=== PATIENT | male | born 1975 | race African-American/Black ===

== ENCOUNTER 2017-07-02 10:23 | Observation (INO) | payer SELFPAY ==
[~2017-07-02] VITALS: Ht 182.9 cm; Wt 85.0 kg
[2017-07-02 10:25] VITALS: BP 177/104; PULSE 64; RESP 14; TEMP 98.9; O2SAT 99
[2017-07-02 10:38] VITALS: BP 179/95; PULSE 58; RESP 16; O2SAT 100
--- NOTE | 2017-07-02 10:40 | PD ---
HPI Chief Complaint: Abdominal Pain Time Seen by Provider: 10:35 Travel History International Travel<30 days: No Contact w/Intl Traveler<30days: No Traveled to known affect area: No History of Present Illness HPI 41-year-old male here for evaluation of right upper quadrant abdominal pain. The patient reports that the pain started yesterday morning and has been constant since then. Pain was a lot worse when it initially started, currently 5 out of 10, described as a pressure. He notices that he has increased pain/ pressure after eating. He states that about a week ago he had a tooth infection and was taking ibuprofen. He drinks about 3 beers daily. No chest pain or dyspnea. No fevers or chills. No nausea or vomiting. No history of abdominal surgeries. No urinary symptoms. PFSH Past Medical History Medical History: Denies Significant Hx Influenza Vaccination: No Past Surgical History Surgical History: No Previous Surgery Social History Alcohol Use: Yes (DAILY BEER (4-6 PER DAY)) Tobacco Use: No (CIGARS (1-2 PER DAY)) Allergies-Medications (Allergen,Severity, Reaction): Coded Allergies: No Known Allergies (Verified Allergy, Unknown, 07/02/17) Reported Meds & Prescriptions Reported Meds & Active Scripts Active No Active Prescriptions or Reported Medications Review of Systems Except as stated in HPI: all other systems reviewed are Neg Physical Exam Narrative GENERAL: Well-developed, well-nourished, comfortable, no apparent distress. SKIN: Focused skin assessment warm/dry. No rash. HEAD: Atraumatic. Normocephalic. EYES: Pupils equal and round. No scleral icterus. No injection or drainage. ENT: Mucous membranes pink and moist. NECK: Trachea midline. No JVD. CARDIOVASCULAR: Regular rate and rhythm. RESPIRATORY: No accessory muscle use. Clear to auscultation. Breath sounds equal bilaterally. GASTROINTESTINAL: Abdomen soft, nondistended. Moderate right upper quadrant tenderness with Vicente sign. No peritoneal signs. Rest of abdomen is soft and nontender. No hernias. Normal bowel sounds. MUSCULOSKELETAL: No obvious deformities. No clubbing. No cyanosis. No edema. NEUROLOGICAL: Awake and alert. No obvious cranial nerve deficits. Motor grossly within normal limits. Normal speech. PSYCHIATRIC: Appropriate mood and affect; insight and judgment normal. Data Data Last Documented VS Vital Signs Date Time Temp Pulse Resp B/P (MAP) Pulse Ox O2 Delivery O2 Flow Rate FiO2 07/02/17 11:36 60 22 163/87 (112) 100 Room Air 07/02/17 10:25 98.9 Orders Orders Complete Blood Count With Diff (07/02/17 10:38) Comprehensive Metabolic Panel (07/02/17 10:38) Lipase (07/02/17 10:38) Prothrombin Time / Inr (Pt) (07/02/17 10:38) Act Partial Throm Time (Ptt) (07/02/17 10:38) Urinalysis - C+S If Indicated (07/02/17 10:38) Us Abdomen Gallbladder (07/02/17 ) Iv Access Insert/Monitor (07/02/17 10:38) Ecg Monitoring (07/02/17 10:38) Oximetry (07/02/17 10:38) Sodium Chloride 0.9% Flush (Ns Flush) (07/02/17 10:45) Electrocardiogram (07/02/17 10:38) Ckmb (Isoenzyme) Profile (07/02/17 10:38) Troponin I (07/02/17 10:38) CKMB (07/02/17 10:50) CKMB% (07/02/17 10:50) Consult Cardiology (07/02/17 ) (Hub Use Only)Inp Phy Cons/Ref (07/02/17 ) Labs Laboratory Tests Test 07/02/17 10:50 White Blood Count 11.5 TH/MM3 Red Blood Count 4.98 MIL/MM3 Hemoglobin 14.7 GM/DL Hematocrit 44.7 % Mean Corpuscular Volume 89.8 FL Mean Corpuscular Hemoglobin 29.4 PG Mean Corpuscular Hemoglobin Concent 32.8 % Red Cell Distribution Width 14.6 % Platelet Count 244 TH/MM3 Mean Platelet Volume 8.1 FL Neutrophils (%) (Auto) 76.5 % Lymphocytes (%) (Auto) 11.1 % Monocytes (%) (Auto) 10.6 % Eosinophils (%) (Auto) 1.4 % Basophils (%) (Auto) 0.4 % Neutrophils # (Auto) 8.8 TH/MM3 Lymphocytes # (Auto) 1.3 TH/MM3 Monocytes # (Auto) 1.2 TH/MM3 Eosinophils # (Auto) 0.2 TH/MM3 Basophils # (Auto) 0.0 TH/MM3 CBC Comment DIFF FINAL Differential Comment Prothrombin Time 10.6 SEC Prothromb Time International Ratio 1.0 RATIO Activated Partial Thromboplast Time 34.9 SEC Urine Color STRAW Urine Turbidity CLEAR Urine pH 6.0 Urine Specific [place] 1.002 Urine Protein NEG mg/dL Urine Glucose (UA) NEG mg/dL Urine Ketones NEG mg/dL Urine Occult Blood NEG Urine Nitrite NEG Urine Bilirubin NEG Urine Urobilinogen LESS THAN 2.0 MG/DL Urine Leukocyte Esterase NEG Urine WBC 1 /hpf Urine Mucus FEW /lpf Microscopic Urinalysis Comment CULT NOT INDICATED Blood Urea Nitrogen 12 MG/DL Creatinine 1.12 MG/DL Random Glucose 103 MG/DL Total Protein 8.3 GM/DL Albumin 4.1 GM/DL Calcium Level 8.9 MG/DL Alkaline Phosphatase 104 U/L Aspartate Amino Transf (AST/SGOT) 27 U/L Alanine Aminotransferase (ALT/SGPT) 30 U/L Total Bilirubin 0.7 MG/DL Sodium Level 136 MEQ/L Potassium Level 4.0 MEQ/L Chloride Level 103 MEQ/L Carbon Dioxide Level 28.6 MEQ/L Anion Gap 4 MEQ/L Estimat Glomerular Filtration Rate 88 ML/MIN Total Creatine Kinase 490 U/L Creatine Kinase MB 3.4 NG/ML Creatine Kinase MB % 0.7 % Troponin I 0.05 NG/ML Lipase 108 U/L MDM Medical Decision Making Medical Screen Exam Complete: Yes Emergency Medical Condition: Yes Interpretation(s) EKG: Sinus, rate 56, leftward axis, normal intervals, slight diffuse ST elevations, no reciprocal changes. This pattern is not consistent with STEMI and is more consistent with early repolarization. Differential Diagnosis Biliary colic, cholecystitis, pancreatitis, peptic ulcer disease, ACS Narrative Course Initial vital signs show heart rate 64, blood pressure 177/104, pulse ox 99% on room air, oral temp of 98.9F. CBC shows WBC 11.5, hemoglobin 14.7, hematocrit 44.7, platelets 244, neutrophils 76.5%. CMP is unremarkable. Total CK is 490. CK-MB percent is 0.7%. Troponin is 0.05. UA is not suggestive of UTI, no hematuria, within normal limits. Right upper quadrant ultrasound: CONCLUSION: 1. Diffusely increased hepatic echogenicity without volume loss consistent with hepatic steatosis or early cirrhosis. 2. Minimal gallbladder sludge with gallbladder wall thickening and subtle pericholecystic fluid. These findings may be seen in the setting of chronic liver disease although differential considerations include developing early acute cholecystitis. Consider HIDA scan if there is continued clinical uncertainty to evaluate for cystic duct patency. EKG: Sinus, rate 56, leftward axis, normal intervals, slight diffuse ST elevations, no reciprocal changes. This pattern is not consistent with STEMI and is more consistent with early repolarization. He has no cardiac history. No chest pain. Case discussed with information assurance engineer kindergartners helper Dr Berger who evaluated the patient at the bedside and recommends repeat troponin 2 hours after the first. He agrees that his EKG is not a STEMI. Case discussed with on-call general surgeon Dr. Martínez who recommends admitting the patient to the medical service for further cardiac evaluation as well as HIDA scan. He will see the patient in consultation. Case discussed with hospitalist Dr. Evans who will admit the patient to his service. Diagnosis Primary Impression: Right upper quadrant abdominal pain Additional Impressions: Cirrhosis Qualified Codes: K70.30 - Alcoholic cirrhosis of liver without ascites Abnormal EKG Scripts No Active Prescriptions or Reported Meds Zachery Sifuentes MD Jul 02, 2017 10:40
[2017-07-02] MEDS ORDERED: SODIUM CHLORIDE 0.9% FLUSH 10 ML FLUSH IV FLUSH PRN ×2 (10:45→14:15)
[2017-07-02 11:01] LABS: AUTOMATED NEUTROPHIL # 8.8 TH/MM3 (1.8-7.7); BASOPHIL % 0.4 % (0.0-2.0); EOSINOPHIL # 0.2 TH/MM3 (0-0.4); EOSINOPHIL % 1.4 % (0.0-4.0); HEMATOCRIT 44.7 % (39.0-51.0); HEMO FLAGS DIFF FINAL; LYMPH % 11.1 % (9.0-44.0); LYMPHOCYTE # 1.3 TH/MM3 (1.0-4.8); MEAN CELL VOLUME 89.8 FL (80.0-100.0); MEAN CORPUSCULAR HEMOGLOBIN 29.4 PG (27.0-34.0); MEAN CORPUSCULAR HGB CONC 32.8 % (32.0-36.0); MONO % 10.6 % (0.0-8.0); NEUT % 76.5 % (16.0-70.0); PLATELET COUNT 244 TH/MM3 (150-450); RED BLOOD COUNT 4.98 MIL/MM3 (4.50-5.90); RED CELL DISTRIBUTION WIDTH 14.6 % (11.6-17.2); WHITE BLOOD COUNT 11.5 TH/MM3 (4.0-11.0)
[2017-07-02 11:10] LABS: APTT (PATIENT) 34.9 SEC (24.3-30.1); BLOOD, URINE NEG (NEG); GLUCOSE,URINE NEG (NEG); KETONE, URINE NEG (NEG); MUCUS URINE FEW /lpf (OCC); NITRITE,URINE NEG (NEG); PROTHROMBIN TIME - PATIENT 10.6 SEC (9.8-11.6)
[2017-07-02 11:12] LABS: URINE COLOR STRAW (YELLW/STRAW)
[2017-07-02 11:13] LABS: COMMENT (UR) CULT NOT INDICATED; COMMENT2 (UR) CULT NOT INDICATED; CULTURE IF INDICATED CULT NOT INDICATED
[2017-07-02 11:15] LABS: ALT (GPT) 30 U/L (12-78); ANION GAP 4 MEQ/L (5-15); AST (GOT) 27 U/L (15-37); BICARBONATE 28.6 MEQ/L (21.0-32.0); BLOOD UREA NITROGEN 12 MG/DL (7-18); CHLORIDE 103 MEQ/L (98-107); GLOMERULAR FILTRATION RATE 88 ML/MIN (>89); SODIUM (NA) 136 MEQ/L (136-145)
[2017-07-02 11:19] LABS: ALKALINE PHOSPHATASE 104 U/L (45-117); CREATINE KINASE 490 U/L (39-308); TOTAL BILIRUBIN ADULT 0.7 MG/DL (0.2-1.0)
[2017-07-02 11:31] LABS: CKMB 3.4 NG/ML (0.5-3.6)
--- NOTE | 2017-07-02 11:35 | EKG ---
Date Performed: 07/02/2017 Time Performed: 10:51:17 PTAGE: 41 years EKG: SINUS BRADYCARDIA LEFT AXIS DEVIATION NONSPECIFIC INTRAVENTRICULAR CONDUCTION DELAY NONSPEC IFIC ST & T-WAVE ABNORMALITY ABNORMAL ECG NO PREVIOUS TRACING DOCTOR: Jonas Robles Interpretating Date/Time 07/02/2017 11:34:10
[2017-07-02 11:36] VITALS: BP 163/87; PULSE 60; RESP 22; O2SAT 100
--- NOTE | 2017-07-02 12:20 | RADRPT ---
EXAM DATE/TIME: 07/02/2017 11:28 [facility] COMPARISON: No previous studies available for comparison. INDICATIONS : Right upper quadrant pain. MEDICAL HISTORY : Alcohol use. Tobacco use. SURGICAL HISTORY : None. ENCOUNTER: Initial ACUITY: 1 day PAIN SCORE: 3/10 LOCATION: Right upper quadrant MEASUREMENTS: LIVER: 16.3 cm length COMMON DUCT: 4 mm RIGHT KIDNEY: 11.2 x 4.4 x 6.4 cm FINDINGS: LIVER: Mild diffusely increased hepatic echogenicity without evidence for volume loss or focal mass. No sign ificant intrahepatic ductal dilatation. COMMON DUCT: No intraluminal mass or stone visualized. GALLBLADDER: Small amount of sludge in the gallbladder neck with mild gallbladder distention. The lateral wall is thickened measuring up to 8 mm with trace pericholecystic fluid. No definitive sonographic Vicente sig n. PANCREAS: The visualized portions are within normal limits. RIGHT KIDNEY: No evidence of hydronephrosis, stone, or mass. CONCLUSION: 1. Diffusely increased hepatic echogenicity without volume loss consistent with hepatic steatosis or early cirrhosis. 2. Minimal gallbladder sludge with gallbladder wall thickening and subtle pericholecystic fluid. Thes e findings may be seen in the setting of chronic liver disease although differential considerations i nclude developing early acute cholecystitis. Consider HIDA scan if there is continued clinical uncert ainty to evaluate for cystic duct patency. Hans Fofana MD on July 02, 2017 at 12:15 Board Certified Radiologist. This report was verified electronically.
[2017-07-02] MEDS ORDERED: BISACODYL 10 MG SUPP RECTAL PRN (14:15)
[2017-07-02] MEDS ORDERED: SENNOSIDES 8.6 MG TAB PO PRN (14:15)
[2017-07-02] MEDS ORDERED: ACETAMINOPHEN 325 MG TAB PO PRN (14:15)
[2017-07-02] MEDS ORDERED: MAGNESIUM HYDROXIDE SUSP 30 ML CUP PO PRN (14:15)
[2017-07-02] MEDS ORDERED: ONDANSETRON HCL 4 MG/2 ML VIAL IVP PRN (14:15)
[2017-07-02] MEDS ORDERED: NALOXONE HCL 0.4 MG/ML AMP IV PUSH PRN (14:15)
[2017-07-02] MEDS ORDERED: LACTULOSE SYRUP 20 GM/30 ML CUP PO PRN (14:15)
--- NOTE | 2017-07-02 15:03 | MB ---
cc: IZABELA LESTER MD DATE OF CONSULTATION: 07/02/2017. REASON FOR CONSULTATION: Abnormal EKG and indeterminate troponin. HISTORY OF PRESENT ILLNESS: The patient is a pleasant 41-year-old gentleman with no prior cardiac history who presents with a day or so of right upper quadrant pain, tender on palpation and his initial workup in the emergency department was notable for an abnormal EKG of which there was no prior for comparison as well as indeterminate level troponin. He denies any cardiac symptoms whatsoever such as chest pain, shortness of breath, lightheadedness, dizziness, or syncope. He denies any drug use but does admit to four to six alcoholic beverages a day as well as occasional cigars. PAST MEDICAL HISTORY: As above. HOME MEDICATIONS: Home medications include: 1. Blood pressure medication from which he does not take consistently. ALLERGIES: NO KNOWN DRUG ALLERGIES. PHYSICAL EXAMINATION: VITAL SIGNS: Afebrile, pulse 60, respiratory rate 22, blood pressure 163/87 down from 175/95, satting 100% on room air. GENERAL: In general, a pleasant -[place] gentleman in no distress. NECK: No jugular venous distention. LUNGS: Clear to auscultation bilaterally. CARDIOVASCULAR: Regular rate and rhythm. No murmurs appreciated. ABDOMEN: Benign. EXTREMITIES: No edema. LABORATORY DATA: White count 11.5, hematocrit 44.7, platelets 244,000. Sodium 136, potassium 4.0, chloride 103, bicarbonate 20.6, BUN 12, creatinine 1.12. Troponin is 0.05. Total CK is 490. CK-MB and CK-MB percent is normal. EKGS: EKG showed sinus rhythm with left ventricular hypertrophy type changes and some J point elevation consistent with early repolarization but no significant ischemic changes. IMPRESSION: Abnormal EKG: The patient does not have any symptoms or clinical indication of an acute cardiac process. His troponin is still in the normal range, though on the higher end possibly due to his significant hypertension. I do not believe there is any active cardiac problem going on as his clinical picture is much more consistent with a GI / gallbladder presentation. I will be available on an as-needed basis. Please call with any further questions. Thank you again for the opportunity to participate in this patient's care. MD TIMOTHY Bautista/ROMEO /12:11 PM /2:39 PM
[2017-07-02] MEDS ORDERED: IOHEXOL 350 MG/ML 10 ML VIAL (for RAD DIAG) IVCONTRAST ONE (15:09)
[2017-07-02] MEDS: HEPARIN SODIUM - SQ 10,000 UNITS/ML VIAL SQ SCH ×2 (15:15→23:18)
[2017-07-02] MEDS: SODIUM CHLOR 0.9% 1000 ML INJ 1,000 ML IV SCH (15:15)
--- NOTE | 2017-07-02 15:44 | HHI.HP ---
[facility] No Primary Care Physician Admission Diagnosis RUQ abdominal pain, cirrhosis, abnormal EKG Diagnoses: Chief Complaint: RUQ abdominal pain Travel History International Travel<30 Days: No Contact w/Intl Traveler <30 Da: No Traveled to Known Affected Are: No History of Present Illness Written by Ada Bustillos, acting as scribe for Dr. Evans on 07/02/17 at 15: 42. 41-year-old male with history of hypertension noncompliant with antihypertensives, alcohol use, presents with a 2 day history of right upper quadrant abdominal pain. The patient states yesterday morning 07/01 around 4am he woke up, tried to sit up, and noticed abdominal pain located at the right upper quadrant, no radiation, described as a constant mild pain. Denies any fevers/chills, nausea/vomiting, or diarrhea. He drank some cold water which does help alleviate the pain. Denies anything making the pain worse. He's never had this pain before. Denies any recent weight loss. Denies any chest pain or shortness of breath. The night before his symptoms started, he ate a meat lovers pizza from [employer] which is unusual for him. He states he normally eats fairly healthy. He also had a toothache 1 week ago, bought a bottle of Aleve, but only took 5 tablets total. He also does take a baby aspirin daily because his grandmother told him it was good for him. The patient has no other medical complaints at this time. Review of Systems Except as stated in HPI: all other systems reviewed are Neg Past Family Social History Past Medical History Hypertension, noncompliant with antihypertensives Past Surgical History Denies any prior surgeries. Reported Medications Aspirin 81mg daily Denies taking any other medications on a regular basis, however supposed to be on lisinopril 10mg and HCTZ 25mg daily for hypertension Allergies: Coded Allergies: No Known Allergies (Verified Allergy, Unknown, 07/02/17) Active Ordered Medications Current Medications Medications (Trade) Dose Ordered Sig/Zion Route Start Time Stop Time Status Last Admin Sodium Chloride 1,000 ml @ 100 mls/hr Q10H IV 07/02/17 14:03 07/02/17 15:15 (NS Flush) 2 ml UNSCH PRN IV FLUSH 07/02/17 14:15 (NS Flush) 2 ml BID IV FLUSH 07/02/17 21:00 (Tylenol) 650 mg Q4H PRN PO 07/02/17 14:15 (Zofran Inj) 4 mg Q6H PRN IVP 07/02/17 14:15 (Heparin Inj) 5,000 units Q8H SQ 07/02/17 15:00 07/02/17 15:15 (Narcan Inj) 0.4 mg UNSCH PRN IV PUSH 07/02/17 14:15 (Justyna-Colace) 1 tab BID PO 07/02/17 21:00 (Milk Of Magnesia Liq) 30 ml Q12H PRN PO 07/02/17 14:15 (Senokot) 17.2 mg Q12H PRN PO 07/02/17 14:15 (Dulcolax Supp) 10 mg DAILY PRN RECTAL 07/02/17 14:15 (Lactulose Liq) 30 ml DAILY PRN PO 07/02/17 14:15 (Toradol Inj) 15 mg Q6H PRN IV PUSH 07/02/17 14:15 07/07/17 14:14 Family History Mother with diabetes Social History Smokes 1 cigar (Black & Mild) daily over the past couple months Denies any cigarette use Drinks alcohol, 3 cans of beer daily recently over the past couple months, denies any problem with alcohol withdrawal Denies any other illicit drug use Physical Exam Vital Signs Vital Signs Date Time Temp Pulse Resp B/P (MAP) Pulse Ox O2 Delivery O2 Flow Rate FiO2 07/02/17 11:36 60 22 163/87 (112) 100 Room Air 07/02/17 10:38 58 16 179/95 (123) 100 Room Air 07/02/17 10:25 98.9 64 14 177/104 (128) 99 Physical Exam GENERAL: Well-nourished, well-developed middle aged male patient in [facility]. SKIN: Warm and dry. No rash. HEAD: Normocephalic. Atraumatic. EYES: Pupils equal and round. No scleral icterus. No injection or drainage. ENT: No nasal bleeding or discharge. Mucous membranes pink and moist. NECK: Supple. Trachea midline. CARDIOVASCULAR: Regular rate and rhythm. S1, S2 noted. No murmur appreciated. RESPIRATORY: No accessory muscle use. Clear to auscultation. Breath sounds equal bilaterally. GASTROINTESTINAL: Abdomen soft, nondistended, RUQ TTP. Normoactive bowel sounds x4. MUSCULOSKELETAL: No obvious deformities. Extremities without clubbing, cyanosis , or edema. NEUROLOGICAL: Awake and alert. No obvious cranial nerve deficits. Motor grossly within normal limits. Normal speech. PSYCHIATRIC: Appropriate mood and affect; insight and judgment normal. Laboratory Laboratory Tests Test 07/02/17 10:50 White Blood Count 11.5 Red Blood Count 4.98 Hemoglobin 14.7 Hematocrit 44.7 Mean Corpuscular Volume 89.8 Mean Corpuscular Hemoglobin 29.4 Mean Corpuscular Hemoglobin Concent 32.8 Red Cell Distribution Width 14.6 Platelet Count 244 Mean Platelet Volume 8.1 Neutrophils (%) (Auto) 76.5 Lymphocytes (%) (Auto) 11.1 Monocytes (%) (Auto) 10.6 Eosinophils (%) (Auto) 1.4 Basophils (%) (Auto) 0.4 Neutrophils # (Auto) 8.8 Lymphocytes # (Auto) 1.3 Monocytes # (Auto) 1.2 Eosinophils # (Auto) 0.2 Basophils # (Auto) 0.0 CBC Comment DIFF FINAL Differential Comment Prothrombin Time 10.6 Prothromb Time International Ratio 1.0 Activated Partial Thromboplast Time 34.9 Urine Color STRAW Urine Turbidity CLEAR Urine pH 6.0 Urine Specific [place] 1.002 Urine Protein NEG Urine Glucose (UA) NEG Urine Ketones NEG Urine Occult Blood NEG Urine Nitrite NEG Urine Bilirubin NEG Urine Urobilinogen LESS THAN 2.0 Urine Leukocyte Esterase NEG Urine WBC 1 Urine Mucus FEW Microscopic Urinalysis Comment CULT NOT INDICATED Blood Urea Nitrogen 12 Creatinine 1.12 Random Glucose 103 Total Protein 8.3 Albumin 4.1 Calcium Level 8.9 Alkaline Phosphatase 104 Aspartate Amino Transf (AST/SGOT) 27 Alanine Aminotransferase (ALT/SGPT) 30 Total Bilirubin 0.7 Sodium Level 136 Potassium Level 4.0 Chloride Level 103 Carbon Dioxide Level 28.6 Anion Gap 4 Estimat Glomerular Filtration Rate 88 Total Creatine Kinase 490 Creatine Kinase MB 3.4 Creatine Kinase MB % 0.7 Troponin I 0.05 Lipase 108 Result Diagram: 07/02/17 1050 07/02/17 1050 Imaging Last Impressions Gall Bladder Ultrasound 07/02/17 0000 Signed Impressions: Service Date/Time: Sunday, July 02, 2017 11:28 - CONCLUSION: 1. Diffusely increased hepatic echogenicity without volume loss consistent with hepatic steatosis or early cirrhosis. 2. Minimal gallbladder sludge with gallbladder wall thickening and subtle pericholecystic fluid. These findings may be seen in the setting of chronic liver disease although differential considerations include developing early acute cholecystitis. Consider HIDA scan if there is continued clinical uncertainty to evaluate for cystic duct patency. MD Radha Perez VTE Risk Assessment Caprinlatoya VTE Risk Assessment: No/Low Risk (score <= 1) Caprini Risk Assessment Model Point Value = 1 Point Value = 2 Point Value = 3 Point Value = 5 Age 41-60 Minor surgery BMI > 25 kg/m2 Swollen legs Varicose veins or History of unexplained or recurrent spontaneous Oral contraceptives or hormone replacement Sepsis (< 1 month) Serious lung disease, including pneumonia (< 1 month) Abnormal pulmonary function Acute myocardial infarction Congestive heart failure (< 1 month) History of inflammatory bowel disease Medical patient at bed rest Age 61-74 Arthroscopic surgery Major open surgery (> 45 min) Laparoscopic surgery (> 45 min) Malignancy Confined to bed (> 72 hours) Immobilizing plaster cast Central venous access Age >= 75 History of VTE Family history of VTE Factor V Leiden Prothrombin 50307H Lupus anticoagulant Anticardiolipin antibodies Elevated serum homocysteine Heparin-induced thrombocytopenia Other congenital or acquired thrombophilia Stroke (< 1 month) Elective arthroplasty Hip, pelvis, or leg fracture Acute spinal cord injury (< 1 month) Prophylaxis Regimen Total Risk Factor Score Risk Level Prophylaxis Regimen 0-1 Low Early ambulation 2 Moderate Order ONE of the following: *Sequential Compression Device (SCD) *Heparin 5000 units SQ BID 3-4 Higher Order ONE of the following medications: *Heparin 5000 units SQ TID *Enoxaparin/Lovenox 40 mg SQ daily (WT < 150 kg, CrCl > 30 mL/min) *Enoxaparin/Lovenox 30 mg SQ daily (WT < 150 kg, CrCl > 10-29 mL/min) *Enoxaparin/Lovenox 30 mg SQ BID (WT < 150 kg, CrCl > 30 mL/min) AND/OR *Sequential Compression Device (SCD) 5 or more Highest Order ONE of the following medications: *Heparin 5000 units SQ TID (Preferred with Epidurals) *Enoxaparin/Lovenox 40 mg SQ daily (WT < 150 kg, CrCl > 30 mL/min) *Enoxaparin/Lovenox 30 mg SQ daily (WT < 150 kg, CrCl > 10-29 mL/min) *Enoxaparin/Lovenox 30 mg SQ BID (WT < 150 kg, CrCl > 30 mL/min) AND *Sequential Compression Device (SCD) Assessment and Plan Problem List: (1) Acute cholecystitis ICD Code: K81.0 - Acute cholecystitis (2) Right upper quadrant abdominal pain ICD Code: R10.11 - Right upper quadrant pain Status: Acute (3) Abnormal EKG ICD Code: R94.31 - Abnormal electrocardiogram [ECG] [EKG] Status: Acute Assessment and Plan 41-year-old male with history of hypertension noncompliant with antihypertensives, alcohol use, presents with a 2 day history of right upper quadrant abdominal pain. RUQ Abdominal Pain: suspected Acute Cholecystitis. GB U/S shows diffusely increased hepatic echogenicity without volume loss consistent with hepatic steatosis or early cirrhosis; minimal gallbladder sludge with GB wall thickening and subtle pericholecystic fluid. ER contacted General Surgeon, recommends admission and HIDA scan. Afebrile, mild leukocytosis, WBC 11.5K. -CT abd/pelvis ordered, results pending. -HIDA scan ordered -Supportive treatment with IVF, pain control with IV toradol, and antiemetics with IV zofran prn -Monitor Is&Os -Keep NPO for now -General surgery Dr. Martínez consulted Abnormal EKG: Troponin 0.05. EKG reviewed, shows slight diffuse ST elevations, more consistent with early repolarization however with symptoms above, need to rule out ACS. -Check serial cardiac enzymes and EKGs -Monitor on telemetry -Consult cardiology, appreciate recommendations, unlikely cardiac however agrees with serial enzymes/EKGs Hypertension: noncompliant with home meds which include lisinopril 10mg and HCTZ 25mg. -Will restart patient's lisinopril, hold HCTZ for now -clonidine and IV vasotec prn -Monitor BP, adjust antihypertensives as needed Alcohol Use: drinks 3 beers daily, possibly more. -counseled on cessation -No signs of withdrawal, will monitor DVT Prophylaxis: teds/SCDs This note was transcribed by rock Bustillos. I, Dr. Terrell Wu personally performed the history, physical exam, and medical decision making; and confirmed the accuracy of the information in the transcribed note. Authenticated by Dr. Terrell Wu on 07/02/17 at 15:51. Discussed Condition With Patient, Patient's significant other at bedside, ER MD Physician Certification 2 Midnight Certification Type: Admission for Inpatient Services Order for Inpatient Services The services are ordered in accordance with Medicare regulations or non- Medicare payer requirements, as applicable. In the case of services not specified as inpatient-only, they are appropriately provided as inpatient services in accordance with the 2-midnight benchmark. Estimated LOS (days): 3 days is the estimated time the patient will need to remain in the hospital, assuming treatment plan goals are met and no additional complications. Post-Hospital Plan: Home Ada Bustillos PA-C Jul 02, 2017 15:43 Terrell Greenfield MD Jul 02, 2017 15:51
--- NOTE | 2017-07-02 15:44 | RADRPT ---
EXAM DATE/TIME: 07/02/2017 14:59 [facility] COMPARISON: No previous studies available for comparison. INDICATIONS : Right upper quadrant pain. IV CONTRAST: 73 cc Omnipaque 350 (iohexol) IV ORAL CONTRAST: No oral contrast ingested. RADIATION DOSE: 12.28 CTDIvol (mGy) MEDICAL HISTORY : None SURGICAL HISTORY : None. ENCOUNTER: Initial ACUITY: 1 day PAIN SCALE: 6/10 LOCATION: Right upper quadrant TECHNIQUE: Volumetric scanning of the abdomen and pelvis was performed. Using automated exposure control and adjustment of the mA and/or kV according to patient size, radiation dose was kept as low as reasonably achievable to obtain optimal diagnostic quality images. DICOM format image data is av ailable electronically for review and comparison. FINDINGS: LOWER LUNGS: The visualized lower lungs are clear. LIVER: Numerous subcentimeter scattered hypodensities throughout the liver which are too small to fully characterize. Mild intrahepatic ductal dilatation. Liver is otherwise unremarkable. Gallbladde r is mild moderately distended with diffuse gallbladder wall thickening and slight pericholecystic fl uid. Common bile duct appears normal in caliber. SPLEEN: Normal size without lesion. PANCREAS: Within normal limits. KIDNEYS: Normal in size and shape. There is no mass, stone or hydronephrosis. ADRENAL GLANDS: Within normal limits. VASCULAR: There is no aortic aneurysm. BOWEL/MESENTERY: Mild sigmoid diverticulosis. Bowel is appears grossly unremarkable. Appendix is visualized and normal in appearance. ABDOMINAL WALL: Within normal limits. RETROPERITONEUM: There is no lymphadenopathy. BLADDER: No wall thickening or mass. REPRODUCTIVE: Within normal limits. INGUINAL: There is no lymphadenopathy or hernia. MUSCULOSKELETAL: Within normal limits for patient age. CONCLUSION: 1. Minimal prominence of the central intrahepatic bile ducts with diffuse gallbladder wall thickening and trace pericholecystic fluid. Combined ultrasound and CT findings are now more concerning for acu te cholecystitis then suspected originally. Again, recommend HIDA scan to evaluate for cystic duct pa tency if there is continued clinical uncertainty. 2. Numerous subcentimeter hypodense lesions in both lobes of the liver that were not well demonstrate d on ultrasound. Statistically these reflect cysts although if cholecystitis is confirmed and there i s sufficient purulence, consideration should be given to possible ascending cholangitis and developin g absceses although it is unlikely. 3. Normal appendix. Hans Fofana MD on July 02, 2017 at 15:33 Board Certified Radiologist. This report was verified electronically.
[2017-07-02] MEDS ORDERED: HYDR25TA5 PO (17:07)
[2017-07-02] MEDS ORDERED: LISI10TA3 PO (17:07)
[2017-07-02] MEDS ORDERED: cloNIDine HCL 0.1 MG TAB PO PRN (17:15)
[2017-07-02] MEDS ORDERED: ENALAPRILAT 1.25 MG/ML VIAL IV PUSH PRN (17:15)
[2017-07-02 17:49] LABS: CKMB 2.5 NG/ML (0.5-3.6)
--- NOTE | 2017-07-02 18:53 | RADRPT ---
EXAM DATE/TIME: 07/02/2017 16:59 [facility] COMPARISON: No previous studies available for comparison. INDICATIONS : Right upper quadrant pain. DOSE: 4.1 mCi Tc99m Mebrofenin IV MEDICAL HISTORY : None SURGICAL HISTORY : None. ENCOUNTER: Initial ACUITY: 2 days PAIN SCALE: 6/10 LOCATION: Right upper quadrant TECHNIQUE: Following the intravenous administration of radiotracer, dynamic sequential images were performed wit h continuous acquisition. FINDINGS: HEPATIC KINETICS: There is prompt uptake of radiotracer in the liver. No focal defects are seen. There is normal rate of washout from the hepatic parenchyma. BILIARY CLEARANCE: Activity is first seen in the extrahepatic biliary system at 15 minutes. There is normal excretion i nto the small bowel. GALLBLADDER: Activity is not demonstrated in the gallbladder. Common bile duct kinetics are normal and there is no evidence of biliary obstruction. BILIARY ENTRIC REFLUX: None observed. CONCLUSION: 1. No activity demonstrated in the gallbladder in the first 60 minutes. Hans Fofana MD on July 02, 2017 at 18:48 Board Certified Radiologist. This report was verified electronically.
[2017-07-02 20:00] VITALS: BP 134/80; PULSE 73; RESP 18; TEMP 100.3; O2SAT 98
[2017-07-02] MEDS: LISINOPRIL 10 MG TAB PO SCH (20:09)
[2017-07-02] MEDS: DOCUSATE SODIUM 50 MG/SENNA 8.6 MG TAB PO SCH (20:09)
[2017-07-02] MEDS: SODIUM CHLORIDE 0.9% FLUSH 10 ML FLUSH IV FLUSH SCH (20:10)
--- NOTE | 2017-07-02 20:23 | MB ---
cc: KATHY GORDILLO MD DATE OF CONSULTATION: 07/02/2017. REASON FOR CONSULTATION: Right upper quadrant abdominal pain, rule out of acute cholecystitis. HISTORY OF PRESENT ILLNESS: The patient is a 41-year-old male with hypertension and chronic EtOH use. The patient presents with a 48-hour history of acute onset of right upper quadrant abdominal pain. He states the pain woke him up in the morning and continued to get worse. It was located in the right upper quadrant, did not radiate, was somewhat constant. Initially it was a 6/10 and currently is a 4/10. He denied any nausea or vomiting, diarrhea or constipation or fever or chills. He did come to the emergency department for further evaluation including an ultrasound showing concern for hepatic steatosis or cirrhosis and minimal gallbladder sludge, minimal wall thickening, tiny amount of pericholecystic fluid. Patient also with sludge. WBC is 11.5. The patient has been afebrile. Surgery was consulted for further evaluation. On my exam the patient states and confirms further abdominal pain. He states he has never had this before. He does admit to drinking for many many years and admits to several beers daily. PAST MEDICAL HISTORY: Hypertension. PAST SURGICAL HISTORY: Denies any surgeries. MEDICATIONS: See the electronic medical record. ALLERGIES: NO KNOWN DRUG ALLERGIES. SOCIAL HISTORY: Daily EtOH . Smokes cigars. Denies any illegal drugs. FAMILY HISTORY: Denies diabetes or hypertension. REVIEW OF SYSTEMS: GENERAL: The patient denies fevers. HEAD, EYES, EARS, NOSE, THROAT: Denies eye pain or ear pain. RESPIRATORY: Denies cough or wheezing. CARDIAC: Denies palpitations or chest pain. ABDOMEN: Complains of abdominal pain. Denies nausea, vomiting. : Denies dysuria or hematuria. ENDOCRINE: Denies polyuria, polydipsia. PHYSICAL EXAMINATION: GENERAL: The patient is in no acute distress. VITAL SIGNS: Temperature 98.9, pulse 64, respirations 14, blood pressure 177/104, saturation 99%. HEAD, EYES, EARS, NOSE, THROAT: Pupils equal, round and reactive to light and accommodation. No scleral icterus. NECK: The neck is supple. Trachea is midline. LUNGS: Bilateral ____ clear. HEART: S1 and S2 regular. ABDOMEN: Soft. Positive tenderness to palpation right upper quadrant. EXTREMITIES: Warm and well-perfused. No edema. NEUROLOGICAL EXAMINATION: 5 motor all extremities. PSYCHIATRIC: Appropriate mood and affect. LABORATORY AND DIAGNOSTIC DATA: WBC 11.5, hemoglobin 14.7, hematocrit 44.7, platelets 244,000. Sodium 136, potassium 4, chloride 103, BUN 12, creatinine 1.1, AST 27, ALT 30, alkaline phosphatase 104. CK 490. CK-MB 0.7. Lipase 108. INR is 1. IMAGING STUDIES: Reviewed. Diffuse increase in hepatic echogenicity of the gallbladder ultrasound, volume loss consistent with early cirrhosis, possible minimal gallbladder sludge, wall thickening, subtle pericholecystic fluid. Cannot rule out acute cholecystitis. ASSESSMENT: A patient 41-year-old male chronic ETOH complains of right upper quadrant abdominal pain rule out cholecystitis, possible hepatic steatosis and possible early cirrhosis. PLAN: After a full clinical, radiologic and laboratory workup, the patient with the above-named issues including right upper quadrant pain. At this point, I favor more of a liver dysfunction than a gallbladder pathology and etiology. The patient's total bilirubin is normal. Therefore, will obtain HIDA scan to delineate the potential for acute cholecystitis. Discussed with the patient in detail and states understanding and agrees. Will continue to follow. Thank you for the consultation. MD NADEEM Bell/ROMEO /7:37 PM /8:05 PM
--- NOTE | 2017-07-02 22:39 | EKG ---
Date Performed: 07/02/2017 Time Performed: 21:59:28 PTAGE: 41 years EKG: Sinus rhythm LEFT AXIS DEVIATION NONSPECIFIC ST & T-WAVE ABNORMALITY ABNORMAL ECG PREVIOUS TRACING : 07/02/2017 10.51 Compared to previous tracing, heart rate has increased. DOCTOR: Jonas Robles Interpretating Date/Time 07/02/2017 22:38:18
[2017-07-02] MEDS: KETOROLAC TROMETHAMINE 30 MG/ML (IVP) VIAL IV PUSH PRN (23:20)
[2017-07-03] MEDS: SODIUM CHLOR 0.9% 1000 ML INJ 1,000 ML IV SCH ×3 (00:03→19:11)
[2017-07-03 00:32] LABS: CKMB 1.7 NG/ML (0.5-3.6)
[2017-07-03 00:50] VITALS: BP 126/72; PULSE 67; RESP 16; TEMP 98.4; O2SAT 98
[2017-07-03] MEDS ORDERED: LACTATED RINGER'S 1000 ML IV PRN (03:30)
[2017-07-03] MEDS ORDERED: CHLORHEXIDINE GLUCONATE 2 % 1 PACK (2 CLOTHS) TOPICAL PRN (03:30)
[2017-07-03] MEDS: HEPARIN SODIUM - SQ 10,000 UNITS/ML VIAL SQ SCH ×3 (06:13→23:00)
[2017-07-03 07:00] LABS: AUTOMATED NEUTROPHIL # 6.1 TH/MM3 (1.8-7.7); BASOPHIL % 0.3 % (0.0-2.0); EOSINOPHIL # 0.1 TH/MM3 (0-0.4); HEMATOCRIT 40.7 % (39.0-51.0); HEMO FLAGS DIFF FINAL; LYMPH % 14.5 % (9.0-44.0); LYMPHOCYTE # 1.3 TH/MM3 (1.0-4.8); MEAN CELL VOLUME 89.9 FL (80.0-100.0); MEAN CORPUSCULAR HEMOGLOBIN 30.1 PG (27.0-34.0); MEAN CORPUSCULAR HGB CONC 33.5 % (32.0-36.0); MONO % 13.9 % (0.0-8.0); NEUT % 70.3 % (16.0-70.0); PLATELET COUNT 195 TH/MM3 (150-450); RED BLOOD COUNT 4.52 MIL/MM3 (4.50-5.90); RED CELL DISTRIBUTION WIDTH 14.3 % (11.6-17.2); WHITE BLOOD COUNT 8.7 TH/MM3 (4.0-11.0)
[2017-07-03 07:27] LABS: ALKALINE PHOSPHATASE 73 U/L (45-117); ALT (GPT) 20 U/L (12-78); ANION GAP 7 MEQ/L (5-15); AST (GOT) 18 U/L (15-37); BLOOD UREA NITROGEN 10 MG/DL (7-18); CHLORIDE 105 MEQ/L (98-107); GLOMERULAR FILTRATION RATE 113 ML/MIN (>89); POTASSIUM 3.7 MEQ/L (3.5-5.1); SODIUM (NA) 138 MEQ/L (136-145); TOTAL BILIRUBIN ADULT 0.8 MG/DL (0.2-1.0)
[2017-07-03 08:00] VITALS: BP 128/85; PULSE 58; RESP 18; TEMP 98; O2SAT 98
[2017-07-03] MEDS: DOCUSATE SODIUM 50 MG/SENNA 8.6 MG TAB PO SCH ×2 (08:37→19:10)
[2017-07-03] MEDS: LISINOPRIL 10 MG TAB PO SCH (08:37)
[2017-07-03] MEDS: KETOROLAC TROMETHAMINE 30 MG/ML (IVP) VIAL IV PUSH PRN ×3 (08:38→21:46)
[2017-07-03] MEDS: SODIUM CHLORIDE 0.9% FLUSH 10 ML FLUSH IV FLUSH SCH ×2 (08:43→19:09)
[2017-07-03 12:00] VITALS: BP 137/80; PULSE 61; RESP 17; TEMP 98.4; O2SAT 97
[2017-07-03 16:00] VITALS: BP 125/80; PULSE 61; RESP 19; TEMP 99.2; O2SAT 99
--- NOTE | 2017-07-03 17:51 | HHI.PR ---
Subjective Subjective Notes Feels better today; minimal pain Wants to eat Objective Vitals/I&O Vital Signs Date Time Temp Pulse Resp B/P (MAP) Pulse Ox O2 Delivery O2 Flow Rate FiO2 07/03/17 16:00 99.2 61 19 125/80 (95) 99 07/02/17 11:36 Room Air Labs Laboratory Tests Test 07/02/17 23:35 07/03/17 06:13 Total Creatine Kinase 315 Creatine Kinase MB 1.7 Creatine Kinase MB % 0.5 Troponin I 0.05 White Blood Count 8.7 Red Blood Count 4.52 Hemoglobin 13.6 Hematocrit 40.7 Mean Corpuscular Volume 89.9 Mean Corpuscular Hemoglobin 30.1 Mean Corpuscular Hemoglobin Concent 33.5 Red Cell Distribution Width 14.3 Platelet Count 195 Mean Platelet Volume 9.0 Neutrophils (%) (Auto) 70.3 Lymphocytes (%) (Auto) 14.5 Monocytes (%) (Auto) 13.9 Eosinophils (%) (Auto) 1.0 Basophils (%) (Auto) 0.3 Neutrophils # (Auto) 6.1 Lymphocytes # (Auto) 1.3 Monocytes # (Auto) 1.2 Eosinophils # (Auto) 0.1 Basophils # (Auto) 0.0 CBC Comment DIFF FINAL Differential Comment Blood Urea Nitrogen 10 Creatinine 0.90 Random Glucose 98 Total Protein 6.9 Albumin 3.0 Calcium Level 8.1 Alkaline Phosphatase 73 Aspartate Amino Transf (AST/SGOT) 18 Alanine Aminotransferase (ALT/SGPT) 20 Total Bilirubin 0.8 Sodium Level 138 Potassium Level 3.7 Chloride Level 105 Carbon Dioxide Level 26.0 Anion Gap 7 Estimat Glomerular Filtration Rate 113 Abdomen: Non-distended, Non-tender A/P Assessment and Plan Cholecystitis with radiographic findings consistent with cirrhosis Discussed need to consider surgery and the fact that it will be more risky due to liver disease. Will also consider liver biopsy at time of cholecystectomy Possible surgery tomorrow. Discussed risks, benefits, alternatives and convalescence, including return to work with patient and significant other. I attest that I had a [id number] encounter with the patient on the same day, and personally performed and documented my assessment and findings in the medical record. The following services were provided during this hospital visit: Chart data review, vital sign assessments/reviewing monitor data Review of consultations notes if present. Medication orders/review and/or management Ordering and/or reviewing lab tests Ordering and/or interpreting/reviewing x-rays and/or diagnostic studies Care of the patient and discussion of the patient with the care team Documentation time To help prompt me to consider important information that might be impacting today's encounter and assessment, information from prior notes written by myself or my colleagues may have been "brought forward/copy and pasted" into today's note. Gallo Pan MD Jul 03, 2017 17:51
--- NOTE | 2017-07-03 19:27 | HHI.PR ---
Subjective Remarks Improved pain in RUQ denies cp/sob denies fevers/chills denies nausea or vomiting Objective Vitals Vital Signs Date Time Temp Pulse Resp B/P (MAP) Pulse Ox O2 Delivery O2 Flow Rate FiO2 07/03/17 16:00 99.2 61 19 125/80 (95) 99 07/03/17 12:00 98.4 61 17 137/80 (99) 97 07/03/17 08:00 98.0 58 18 128/85 (99) 98 07/03/17 00:50 98.4 67 16 126/72 (90) 98 07/03/17 00:20 18 07/02/17 20:00 100.3 73 18 134/80 (98) 98 I/O 07/02/17 07/02/17 07/02/17 07/03/17 07/03/17 07/03/17 07:00 15:00 23:00 07:00 15:00 23:00 Intake Total 1000 ml 1015 ml Balance 1000 ml 1015 ml Intake Oral 275 ml IV Total 1000 ml 740 ml # Voids 1 3 # Bowel Movements 0 Result Diagram: 07/03/17 0613 07/03/17 0613 Imaging Last Impressions Hepatobiliary Scan Nuclear Medicine 07/02/17 0000 Signed Impressions: Service Date/Time: Sunday, July 02, 2017 16:59 - CONCLUSION: 1. No activity demonstrated in the gallbladder in the first 60 minutes. Hans Fofana MD Gall Bladder Ultrasound 07/02/17 0000 Signed Impressions: Service Date/Time: Sunday, July 02, 2017 11:28 - CONCLUSION: 1. Diffusely increased hepatic echogenicity without volume loss consistent with hepatic steatosis or early cirrhosis. 2. Minimal gallbladder sludge with gallbladder wall thickening and subtle pericholecystic fluid. These findings may be seen in the setting of chronic liver disease although differential considerations include developing early acute cholecystitis. Consider HIDA scan if there is continued clinical uncertainty to evaluate for cystic duct patency. Hans Fofana MD Abdomen/Pelvis CT 07/02/17 0000 Signed Impressions: Service Date/Time: Sunday, July 02, 2017 14:59 - CONCLUSION: 1. Minimal prominence of the central intrahepatic bile ducts with diffuse gallbladder wall thickening and trace pericholecystic fluid. Combined ultrasound and CT findings are now more concerning for acute cholecystitis then suspected originally. Again, recommend HIDA scan to evaluate for cystic duct patency if there is continued clinical uncertainty. 2. Numerous subcentimeter hypodense lesions in both lobes of the liver that were not well demonstrated on ultrasound. Statistically these reflect cysts although if cholecystitis is confirmed and there is sufficient purulence, consideration should be given to possible ascending cholangitis and developing absceses although it is unlikely. 3. Normal appendix. Hans Fofana MD Objective Remarks AAOx3 Clear lungs BL Abdomen soft, mildly tender to palpation on RUQ Medications and IVs Current Medications Medications (Trade) Dose Ordered Sig/Zion Route Start Time Stop Time Status Last Admin Sodium Chloride 1,000 ml @ 100 mls/hr Q10H IV 07/02/17 14:03 07/03/17 19:11 (NS Flush) 2 ml UNSCH PRN IV FLUSH 07/02/17 14:15 (NS Flush) 2 ml BID IV FLUSH 07/02/17 21:00 07/02/17 20:10 (Tylenol) 650 mg Q4H PRN PO 07/02/17 14:15 07/03/17 01:11 (Zofran Inj) 4 mg Q6H PRN IVP 07/02/17 14:15 (Heparin Inj) 5,000 units Q8H SQ 07/02/17 15:00 07/03/17 15:10 (Narcan Inj) 0.4 mg UNSCH PRN IV PUSH 07/02/17 14:15 (Justyna-Colace) 1 tab BID PO 07/02/17 21:00 07/03/17 19:10 (Milk Of Magnesia Liq) 30 ml Q12H PRN PO 07/02/17 14:15 (Senokot) 17.2 mg Q12H PRN PO 07/02/17 14:15 (Dulcolax Supp) 10 mg DAILY PRN RECTAL 07/02/17 14:15 (Lactulose Liq) 30 ml DAILY PRN PO 07/02/17 14:15 (Toradol Inj) 15 mg Q6H PRN IV PUSH 07/02/17 14:15 07/07/17 14:14 07/03/17 15:09 (Prinivil) 10 mg DAILY PO 07/02/17 17:15 07/03/17 08:37 (Catapres) 0.1 mg Q6H PRN PO 07/02/17 17:15 (Vasotec Inj) 1.25 mg Q6H PRN IV PUSH 07/02/17 17:15 Lactated Ringer's 1,000 ml @ 30 mls/hr Q24H PRN IV 07/03/17 03:30 07/06/17 03:29 (Chlorhexidine 2% Cloth) 3 pack SEXUAL ASSAULT COUNSELOR PRN TOPICAL 07/03/17 03:30 07/06/17 03:29 A/P Problem List: (1) Acute cholecystitis ICD Code: K81.0 - Acute cholecystitis (2) Right upper quadrant abdominal pain ICD Code: R10.11 - Right upper quadrant pain Status: Acute (3) Abnormal EKG ICD Code: R94.31 - Abnormal electrocardiogram [ECG] [EKG] Status: Acute (4) Low grade fever ICD Code: R50.9 - Fever, unspecified Assessment and Plan 41-year-old male with history of hypertension noncompliant with antihypertensives, alcohol use, presents with a 2 day history of right upper quadrant abdominal pain. RUQ Abdominal Pain: suspected Acute Cholecystitis. GB U/S shows diffusely increased hepatic echogenicity without volume loss consistent with hepatic steatosis or early cirrhosis; minimal gallbladder sludge with GB wall thickening and subtle pericholecystic fluid. ER contacted General Surgeon, recommends admission and HIDA scan. Afebrile, mild leukocytosis, WBC 11.5K. -Supportive treatment with IVF, pain control with IV toradol, and antiemetics with IV zofran prn -Monitor Is&Os -Keep NPO for now 07/03 HIDA scan consistent with acute cholecystitis. Ultrasound shows some changes consistent with cirrhosis, however patient has normal LFTs, normal INR and normal bilirubin. Possible cholecystectomy in a.m. as well as liver biopsy. Abnormal EKG: Troponin 0.05. EKG reviewed, shows slight diffuse ST elevations, more consistent with early repolarization however with symptoms above, need to rule out ACS. -Check serial cardiac enzymes and EKGs -Monitor on telemetry -Consult cardiology, appreciate recommendations, unlikely cardiac however agrees with serial enzymes/EKGs 07/03 -enzymes remained stable at 0.05. Doubt ACS. Hypertension: noncompliant with home meds which include lisinopril 10mg and HCTZ 25mg. -Will restart patient's lisinopril, hold HCTZ for now -clonidine and IV vasotec prn -Monitor BP, adjust antihypertensives as needed 07/03 BP stable, continue lisinopril, continue clonidine and Vasotec IV when necessary. Alcohol Use: drinks 3 beers daily, possibly more. -counseled on cessation -No signs of withdrawal, will monitor DVT Prophylaxis: teds/SCDs Terrell Greenfield MD Jul 03, 2017 19:27
[2017-07-03 20:33] VITALS: BP 147/81; PULSE 80; RESP 18; TEMP 100.4; O2SAT 96
[2017-07-04 00:09] VITALS: BP 134/73; PULSE 72; RESP 20; TEMP 99.9; O2SAT 97
[2017-07-04] MEDS: HEPARIN SODIUM - SQ 10,000 UNITS/ML VIAL SQ SCH (05:15)
[2017-07-04] MEDS: SODIUM CHLOR 0.9% 1000 ML INJ 1,000 ML IV SCH ×2 (05:16→16:03)
[2017-07-04] MEDS: KETOROLAC TROMETHAMINE 30 MG/ML (IVP) VIAL IV PUSH PRN ×3 (05:16→22:22)
[2017-07-04 06:14] LABS: AUTOMATED NEUTROPHIL # 6.6 TH/MM3 (1.8-7.7); BASOPHIL % 0.4 % (0.0-2.0); EOSINOPHIL % 0.2 % (0.0-4.0); HEMATOCRIT 38.5 % (39.0-51.0); HEMO FLAGS DIFF FINAL; LYMPH % 13.4 % (9.0-44.0); LYMPHOCYTE # 1.2 TH/MM3 (1.0-4.8); MEAN CELL VOLUME 89.7 FL (80.0-100.0); MEAN CORPUSCULAR HEMOGLOBIN 30.5 PG (27.0-34.0); MEAN CORPUSCULAR HGB CONC 33.9 % (32.0-36.0); MONO % 14.5 % (0.0-8.0); NEUT % 71.5 % (16.0-70.0); PLATELET COUNT 188 TH/MM3 (150-450); RED BLOOD COUNT 4.29 MIL/MM3 (4.50-5.90); RED CELL DISTRIBUTION WIDTH 14.4 % (11.6-17.2); WHITE BLOOD COUNT 9.2 TH/MM3 (4.0-11.0)
[2017-07-04 06:54] LABS: ALT (GPT) 20 U/L (12-78); ANION GAP 6 MEQ/L (5-15); AST (GOT) 18 U/L (15-37); BICARBONATE 25.5 MEQ/L (21.0-32.0); BLOOD UREA NITROGEN 8 MG/DL (7-18); CHLORIDE 107 MEQ/L (98-107); GLOMERULAR FILTRATION RATE 113 ML/MIN (>89); POTASSIUM 3.8 MEQ/L (3.5-5.1); SODIUM (NA) 138 MEQ/L (136-145)
[2017-07-04 06:55] LABS: ALKALINE PHOSPHATASE 63 U/L (45-117); TOTAL BILIRUBIN ADULT 1.1 MG/DL (0.2-1.0)
[2017-07-04 08:00] VITALS: BP 122/78; PULSE 59; RESP 17; TEMP 98.2; O2SAT 98
[2017-07-04] MEDS: DOCUSATE SODIUM 50 MG/SENNA 8.6 MG TAB PO SCH ×2 (08:53→20:12)
[2017-07-04] MEDS: LISINOPRIL 10 MG TAB PO SCH (08:53)
[2017-07-04] MEDS: SODIUM CHLORIDE 0.9% FLUSH 10 ML FLUSH IV FLUSH SCH ×2 (08:54→20:12)
[2017-07-04 12:00] VITALS: BP 138/80; PULSE 60; RESP 18; TEMP 99.9; O2SAT 97
[2017-07-04] MEDS ORDERED: ePHEDrine/NS 25 MG/5 ML SYR IV ONE (12:00)
[2017-07-04] MEDS ORDERED: ceFAZolin INJ 1,000 MG VIAL IV ONE ×2 (12:00→17:02)
[2017-07-04] MEDS ORDERED: DEXAMETHASONE SOD PHOS 4 MG/ML VIAL IV ONE (12:00)
[2017-07-04] MEDS ORDERED: ONDANSETRON HCL 4 MG/2 ML VIAL IV PUSH ONE (12:00)
[2017-07-04] MEDS ORDERED: KETOROLAC TROMETHAMINE 30 MG/ML (IVP) VIAL IV PUSH ONE (12:00)
[2017-07-04] MEDS ORDERED: NEOSTIGMINE 3 MG/3 ML SYR IV ONE (12:00)
[2017-07-04] MEDS ORDERED: MIDAZOLAM HCL 2 MG/2 ML VIAL IV ONE (12:00)
[2017-07-04] MEDS ORDERED: SODIUM CHLORIDE 0.9% 20 ML VIAL IV ONE (12:00)
[2017-07-04] MEDS ORDERED: GLYCOPYRROLATE 1 MG/5 ML SYRINGE IV PUSH ONE (12:00)
[2017-07-04] MEDS ORDERED: ROCURONIUM INJ 50 MG/5 ML SYRINGE IV PUSH ONE (12:00)
[2017-07-04] MEDS ORDERED: LIDOCAINE HCL 1% PF 5 ML AMPULE OTHER ONE (12:00)
[2017-07-04] MEDS ORDERED: PROPOFOL 200 MG/20 ML AMP IV ONE (12:00)
[2017-07-04] MEDS ORDERED: PHENYLEPH/NS 1000 MCG/10 ML SYR IV ONE (12:00)
--- NOTE | 2017-07-04 15:41 | HHI.PR ---
Subjective Remarks RUQ pain controlled denies nausea or vomiting denies fevers/chills stable vital signs Objective Vitals Vital Signs Date Time Temp Pulse Resp B/P (MAP) Pulse Ox O2 Delivery O2 Flow Rate FiO2 07/04/17 12:00 99.9 60 18 138/80 (99) 97 07/04/17 08:00 98.2 59 17 122/78 (93) 98 07/04/17 06:16 18 07/04/17 00:09 99.9 72 20 134/73 (93) 97 07/03/17 20:33 100.4 80 18 147/81 (103) 96 07/03/17 16:00 99.2 61 19 125/80 (95) 99 I/O 07/03/17 07/03/17 07/03/17 07/04/17 07/04/17 07/04/17 07:00 15:00 23:00 07:00 15:00 23:00 Intake Total 1000 ml 1275 ml 1000 ml Balance 1000 ml 1275 ml 1000 ml Intake Oral 275 ml IV Total 1000 ml 1000 ml 1000 ml # Voids 1 3 3 # Bowel Movements 0 Result Diagram: 07/04/17 0504 07/04/17 0540 Imaging Last Impressions Hepatobiliary Scan Nuclear Medicine 07/02/17 0000 Signed Impressions: Service Date/Time: Sunday, July 02, 2017 16:59 - CONCLUSION: 1. No activity demonstrated in the gallbladder in the first 60 minutes. Hans Fofana MD Gall Bladder Ultrasound 07/02/17 0000 Signed Impressions: Service Date/Time: Sunday, July 02, 2017 11:28 - CONCLUSION: 1. Diffusely increased hepatic echogenicity without volume loss consistent with hepatic steatosis or early cirrhosis. 2. Minimal gallbladder sludge with gallbladder wall thickening and subtle pericholecystic fluid. These findings may be seen in the setting of chronic liver disease although differential considerations include developing early acute cholecystitis. Consider HIDA scan if there is continued clinical uncertainty to evaluate for cystic duct patency. Hans Fofana MD Abdomen/Pelvis CT 07/02/17 0000 Signed Impressions: Service Date/Time: Sunday, July 02, 2017 14:59 - CONCLUSION: 1. Minimal prominence of the central intrahepatic bile ducts with diffuse gallbladder wall thickening and trace pericholecystic fluid. Combined ultrasound and CT findings are now more concerning for acute cholecystitis then suspected originally. Again, recommend HIDA scan to evaluate for cystic duct patency if there is continued clinical uncertainty. 2. Numerous subcentimeter hypodense lesions in both lobes of the liver that were not well demonstrated on ultrasound. Statistically these reflect cysts although if cholecystitis is confirmed and there is sufficient purulence, consideration should be given to possible ascending cholangitis and developing absceses although it is unlikely. 3. Normal appendix. Hans Fofana MD Objective Remarks AAOx3 Clear lungs BL Abdomen soft, mildly tender to palpation on RUQ Medications and IVs Current Medications Medications (Trade) Dose Ordered Sig/Zion Route Start Time Stop Time Status Last Admin Sodium Chloride 1,000 ml @ 100 mls/hr Q10H IV 07/02/17 14:03 07/04/17 05:16 (NS Flush) 2 ml UNSCH PRN IV FLUSH 07/02/17 14:15 (NS Flush) 2 ml BID IV FLUSH 07/02/17 21:00 07/02/17 20:10 (Tylenol) 650 mg Q4H PRN PO 07/02/17 14:15 07/03/17 01:11 (Zofran Inj) 4 mg Q6H PRN IVP 07/02/17 14:15 (Narcan Inj) 0.4 mg UNSCH PRN IV PUSH 07/02/17 14:15 (Justyna-Colace) 1 tab BID PO 07/02/17 21:00 07/04/17 08:53 (Milk Of Magnesia Liq) 30 ml Q12H PRN PO 07/02/17 14:15 (Senokot) 17.2 mg Q12H PRN PO 07/02/17 14:15 (Dulcolax Supp) 10 mg DAILY PRN RECTAL 07/02/17 14:15 (Lactulose Liq) 30 ml DAILY PRN PO 07/02/17 14:15 (Toradol Inj) 15 mg Q6H PRN IV PUSH 07/02/17 14:15 07/07/17 14:14 07/04/17 12:20 (Prinivil) 10 mg DAILY PO 07/02/17 17:15 07/04/17 08:53 (Catapres) 0.1 mg Q6H PRN PO 07/02/17 17:15 (Vasotec Inj) 1.25 mg Q6H PRN IV PUSH 07/02/17 17:15 Lactated Ringer's 1,000 ml @ 30 mls/hr Q24H PRN IV 07/03/17 03:30 07/06/17 03:29 (Chlorhexidine 2% Cloth) 3 pack VIDEO OPERATOR PRN TOPICAL 07/03/17 03:30 07/06/17 03:29 A/P Problem List: (1) Acute cholecystitis ICD Code: K81.0 - Acute cholecystitis (2) Right upper quadrant abdominal pain ICD Code: R10.11 - Right upper quadrant pain Status: Acute (3) Abnormal EKG ICD Code: R94.31 - Abnormal electrocardiogram [ECG] [EKG] Status: Acute (4) Low grade fever ICD Code: R50.9 - Fever, unspecified Status: Acute Assessment and Plan 41-year-old male with history of hypertension noncompliant with antihypertensives, alcohol use, presents with a 2 day history of right upper quadrant abdominal pain. RUQ Abdominal Pain: suspected Acute Cholecystitis. GB U/S shows diffusely increased hepatic echogenicity without volume loss consistent with hepatic steatosis or early cirrhosis; minimal gallbladder sludge with GB wall thickening and subtle pericholecystic fluid. ER contacted General Surgeon, recommends admission and HIDA scan. Afebrile, mild leukocytosis, WBC 11.5K. -Supportive treatment with IVF, pain control with IV toradol, and antiemetics with IV zofran prn -Monitor Is&Os -Keep NPO for now 07/03 HIDA scan consistent with acute cholecystitis. Ultrasound shows some changes consistent with cirrhosis, however patient has normal LFTs, normal INR and normal bilirubin. Possible cholecystectomy in a.m. as well as liver biopsy. - 07/04 for cholecystectomy today. Abnormal EKG: Troponin 0.05. EKG reviewed, shows slight diffuse ST elevations, more consistent with early repolarization however with symptoms above, need to rule out ACS. -Check serial cardiac enzymes and EKGs -Monitor on telemetry -Consult cardiology, appreciate recommendations, unlikely cardiac however agrees with serial enzymes/EKGs 07/03 -enzymes remained stable at 0.05. Doubt ACS. 07/04 No chest pain. Hypertension: noncompliant with home meds which include lisinopril 10mg and HCTZ 25mg. -Will restart patient's lisinopril, hold HCTZ for now -clonidine and IV vasotec prn -Monitor BP, adjust antihypertensives as needed 10/1 BP stable, continue lisinopril, continue clonidine and Vasotec IV when necessary. 10/2 Bp stable continue management as above. Alcohol Use: drinks 3 beers daily, possibly more. -counseled on cessation -No signs of withdrawal, will monitor DVT Prophylaxis: teds/SCDs Terrell Greenfield MD Jul 04, 2017 15:41
[2017-07-04] MEDS ORDERED: BUPIVACAINE/EPINEPHRINE 0.25% 50 ML VIAL ONE (16:14)
[2017-07-04] MEDS ORDERED: ACETAMINOPHEN 1000 MG/100 ML 100 ML IV ONE (16:39)
--- NOTE | 2017-07-04 18:04 | HHI.PR ---
Immediate Post Op Note Procedure Date: Jul 04, 2017 Pre Op Diagnosis: acute cholecystitis, cirrhosis Post Op Diagnosis: same Surgeon: Marty Martínez MD Business Development Sales Executive(s): see or sheet Procedure: lap satinder, lap liver bx Findings: distended gallbladder with adhesions, think inflammation Complications: none Specimen(s) removed: gallbladder Estimated blood loss: 10cc Anesthesia: General Drains: None Patient to: PACU Patient Condition: Good Marty Martínez MD Jul 04, 2017 18:04
[2017-07-04] MEDS ORDERED: DO NOT ADM ANY ANTICOAGULANT DRUGS PRN (18:26)
[2017-07-04 20:00] VITALS: BP 120/66; PULSE 65; RESP 18; TEMP 99; O2SAT 96
[2017-07-05] VITALS: BP 117/62; PULSE 61; RESP 17; TEMP 98.2; O2SAT 96
[2017-07-05] MEDS: SODIUM CHLOR 0.9% 1000 ML INJ 1,000 ML IV SCH (02:24)
[2017-07-05 04:00] VITALS: BP 111/64; PULSE 50; RESP 18; TEMP 97.1; O2SAT 98
[2017-07-05 07:13] LABS: MEAN CELL VOLUME 90.7 FL (80.0-100.0); MEAN CORPUSCULAR HEMOGLOBIN 29.7 PG (27.0-34.0); MEAN CORPUSCULAR HGB CONC 32.7 % (32.0-36.0); PLATELET COUNT 210 TH/MM3 (150-450); RED BLOOD COUNT 4.08 MIL/MM3 (4.50-5.90); RED CELL DISTRIBUTION WIDTH 14.3 % (11.6-17.2); REVIEW FLAG FINAL; WHITE BLOOD COUNT 10.3 TH/MM3 (4.0-11.0)
[2017-07-05] MEDS: SODIUM CHLORIDE 0.9% FLUSH 10 ML FLUSH IV FLUSH SCH (07:30)
[2017-07-05 07:35] LABS: BICARBONATE 23.3 MEQ/L (21.0-32.0); POTASSIUM 4.1 MEQ/L (3.5-5.1)
[2017-07-05] MEDS: DOCUSATE SODIUM 50 MG/SENNA 8.6 MG TAB PO SCH (07:37)
[2017-07-05] MEDS: KETOROLAC TROMETHAMINE 30 MG/ML (IVP) VIAL IV PUSH PRN ×2 (07:38→16:55)
[2017-07-05] MEDS: LISINOPRIL 10 MG TAB PO SCH (07:42)
[2017-07-05 08:00] VITALS: BP 120/75; PULSE 53; RESP 17; TEMP 98; O2SAT 97
--- NOTE | 2017-07-05 09:02 | MP ---
cc: KATHY MARTÍNEZ MD DATE OF SURGERY 07/04/2017 PREOPERATIVE DIAGNOSIS Cholecystitis, possible liver cirrhosis. POSTOPERATIVE DIAGNOSIS Cholecystitis, possible liver cirrhosis. PROCEDURE PERFORMED 1. Laparoscopic cholecystectomy 2. Laparoscopic liver biopsy SURGEON Dr. Kathy Martínez TAX INVESTIGATOR See OR sheet ANESTHESIA GETA IV FLUIDS See anesthesia sheet ESTIMATED BLOOD LOSS 10 cc DRAINS None COMPLICATIONS None WOUND CLASSIFICATION Clean, contaminated SPECIMEN Gallbladder sent for pathology, liver biopsy sent for pathology. FINDINGS Not very impressive cirrhosis, distended gallbladder, acute inflammation, very indurated with adhesions. INDICATIONS The patient is a 41-year-old male who presented with acute onset of right upper quadrant abdominal pain. The patient came to the emergency department and further workup including gallbladder ultrasound with concern for cholecystitis and possible cirrhosis. Therefore a discussion with a workup with the HIDA scan showing positive for acute cholecystitis. Therefore, a decision was made for laparoscopic cholecystectomy. DETAILS OF THE PROCEDURE The patient was taken to the operating suite, placed in a supine position. He was prepped and draped in the usual sterile fashion after induction of general endotracheal anesthesia. A brief time-out done stating correct patient, procedure and surgical site, we were all in agreement with this. Attention first directed to the umbilicus where a stab scarlet was made after injection of local anesthetic. Veress needle placed, saline drop test confirmed intra-abdominal placement. Abdomen insufflated to 215 mm pneumoperitoneum. Laparoscope 5 mm obtained and entered with a Visiport. On cursory inspection, no evidence of injury. The patient placed in reverse Trendelenburg, airplaned to the left. Three other ports placed, one 12 mm epigastric, followed by two 5 mm right subcostal ports. The gallbladder was identified and noted to have several adhesions to the gallbladder. These were taken down with electro Bovie cautery. The gallbladder was grasped, however, was thickened and edematous, therefore it was very difficult to grasp and required an Endo-needle for decompression with approximately 140 cc of bile aspirated. The gallbladder was retracted cephalad. Adhesions taken down. The cystic duct was identified and cystic artery as well. The cystic artery was clipped between two 5 mm clips placed proximal and one distal and endoshears used to transect this. The cystic duct was somewhat scarred in with inflammation, therefore, a decision was made for dome down technique which was done and the looped PDS was used to ligate the gallbladder at the cystic duct. This was done x2. Following this, and Endoshears were used to transect the gallbladder. The gallbladder placed in an EndoCatch bag. The bag was removed through the epigastric port and suction irrigation done. Electro Bovie cautery was used for hemostasis. Once we were satisfied with this, pneumoperitoneum was removed and the ports were removed and the epigastric port was closed with a [id number] 0 Vicryl followed by 4-0 subcuticular Monocryl sutures. Sterile dressings then placed. The patient tolerated the procedure well. Actually prior to closure, the Ghassan-Cut laparoscopic biopsy needle was obtained and placed consensual to the liver through one of the port sites. The specimen was fired and removed and placed on a Telfa and sent for pathology. A second specimen was obtained with a second laparoscopic biopsy and sent for pathology as well. Hemostasis obtained to the liver bed and at the biopsy site. The patient tolerated procedure well. There were no intraoperative complication. The patient was x-rayed and taken to the PACU. All lap and instrument counts were correct at the end of the procedure. MD NADEEM Bell/EJ /6:14 PM /8:45 AM
--- NOTE | 2017-07-05 10:11 | HHI.PR ---
Subjective Subjective Notes Resting in bed Ready to try regular food Objective Vitals/I&O Vital Signs Date Time Temp Pulse Resp B/P (MAP) Pulse Ox O2 Delivery O2 Flow Rate FiO2 07/05/17 08:00 98.0 53 17 120/75 (90) 97 07/04/17 18:45 Room Air 07/04/17 18:26 10 Labs Laboratory Tests Test 07/05/17 05:50 White Blood Count 10.3 Red Blood Count 4.08 Hemoglobin 12.1 Hematocrit 37.0 Mean Corpuscular Volume 90.7 Mean Corpuscular Hemoglobin 29.7 Mean Corpuscular Hemoglobin Concent 32.7 Red Cell Distribution Width 14.3 Platelet Count 210 Mean Platelet Volume 9.2 Blood Urea Nitrogen 9 Creatinine 0.96 Random Glucose 116 Calcium Level 8.3 Sodium Level 138 Potassium Level 4.1 Chloride Level 106 Carbon Dioxide Level 23.3 Anion Gap 9 Estimat Glomerular Filtration Rate 105 Cardiovascular: Regular Lungs: Clear Abdomen: Other (lap sites c/d/i ), Post-op tenderness Extremities: No edema A/P Assessment and Plan 41 year old male POD1 lap satinedr; lap liver bx -Advance to regular diet -DC IVF -OOB and mobilize -Pain control -Okay to DC this afternoon from GS standpoint -Follow up with Dr. Martínez in 7-10 days -Percocet rx on chart Attending Statement patient seen at bedside, agree with above doing well f/u 1 week Attestation The exam, history, and the medical decision-making described in the above note were completed with the assistance of the mid-level provider. I reviewed and agree with the findings presented. I attest that I had a [id number] encounter with the patient on the same day, and personally performed and documented my assessment and findings in the medical record. Steffi Seth Jul 05, 2017 10:11 Marty Martínez MD Jul 08, 2017 15:42
[2017-07-05 12:00] VITALS: BP 125/80; PULSE 49; RESP 18; TEMP 97.8; O2SAT 98
[2017-07-05 16:00] VITALS: BP 133/76; PULSE 52; RESP 17; TEMP 96.7; O2SAT 98
--- NOTE | 2017-07-05 16:30 | HHI.DCPOC ---
Discharge Care Plan Diagnosis: (1) Acute cholecystitis (2) Low grade fever (3) Right upper quadrant abdominal pain (4) Abnormal EKG Goals to Promote Your Health * To prevent worsening of your condition and complications * To maintain your health at the optimal level Directions to Meet Your Goals Take your medications as prescribed Follow your dietary instruction Follow activity as directed Keep your appointments as scheduled Take your immunizations and boosters as scheduled If your symptoms worsen call your PCP, if no PCP go to Urgent Care Center or Emergency Room Smoking is Dangerous to Your Health. Avoid second hand smoke Call the 24-hour hour crisis hotline for domestic abuse at Terrell Greenfield MD Jul 05, 2017 16:30
--- NOTE | 2017-07-05 16:39 | HHI.DS ---
Discharge Summary Admission Date Jul 02, 2017 at 13:31 Discharge Date: Jul 05, 2017 Admitting Diagnosis RUQ abdominal pain, cirrhosis, abnormal EKG (1) Acute cholecystitis ICD Code: K81.0 - Acute cholecystitis (2) Right upper quadrant abdominal pain ICD Code: R10.11 - Right upper quadrant pain Status: Acute (3) Abnormal EKG ICD Code: R94.31 - Abnormal electrocardiogram [ECG] [EKG] Status: Acute (4) Low grade fever ICD Code: R50.9 - Fever, unspecified Status: Acute Procedures sp laparoscopic cholecystectomy Brief History - From Admission Written by Ada Bustillos, acting as scribe for Dr. Evans on 07/02/17 at 15: 42. 41-year-old male with history of hypertension noncompliant with antihypertensives, alcohol use, presents with a 2 day history of right upper quadrant abdominal pain. The patient states yesterday morning 07/01 around 4am he woke up, tried to sit up, and noticed abdominal pain located at the right upper quadrant, no radiation, described as a constant mild pain. Denies any fevers/chills, nausea/vomiting, or diarrhea. He drank some cold water which does help alleviate the pain. Denies anything making the pain worse. He's never had this pain before. Denies any recent weight loss. Denies any chest pain or shortness of breath. The night before his symptoms started, he ate a meat lovers pizza from [employer] which is unusual for him. He states he normally eats fairly healthy. He also had a toothache 1 week ago, bought a bottle of Aleve, but only took 5 tablets total. He also does take a baby aspirin daily because his grandmother told him it was good for him. The patient has no other medical complaints at this time. CBC/BMP: 07/05/17 0550 07/05/17 0550 Significant Findings Laboratory Tests Test 07/02/17 16:55 07/02/17 23:35 07/03/17 06:13 07/04/17 05:04 Total Creatine Kinase 352 U/L (39-308) 315 U/L (39-308) Neutrophils (%) (Auto) 70.3 % (16.0-70.0) 71.5 % (16.0-70.0) Monocytes (%) (Auto) 13.9 % (0.0-8.0) 14.5 % (0.0-8.0) Monocytes # (Auto) 1.2 TH/MM3 (0-0.9) 1.3 TH/MM3 (0-0.9) Albumin 3.0 GM/DL (3.4-5.0) Calcium Level 8.1 MG/DL (8.5-10.1) Red Blood Count 4.29 MIL/MM3 (4.50-5.90) Hematocrit 38.5 % (39.0-51.0) Test 07/04/17 05:40 07/05/17 05:50 Albumin 2.8 GM/DL (3.4-5.0) Calcium Level 7.9 MG/DL (8.5-10.1) 8.3 MG/DL (8.5-10.1) Total Bilirubin 1.1 MG/DL (0.2-1.0) Red Blood Count 4.08 MIL/MM3 (4.50-5.90) Hemoglobin 12.1 GM/DL (13.0-17.0) Hematocrit 37.0 % (39.0-51.0) Random Glucose 116 MG/DL (74-106) Imaging Last Impressions Hepatobiliary Scan Nuclear Medicine 07/02/17 Signed Impressions: Service Date/Time: Sunday, July 02, 2017 16:59 - CONCLUSION: 1. No activity demonstrated in the gallbladder in the first 60 minutes. Hans Fofana MD Gall Bladder Ultrasound 07/02/17 Signed Impressions: Service Date/Time: Sunday, July 02, 2017 11:28 - CONCLUSION: 1. Diffusely increased hepatic echogenicity without volume loss consistent with hepatic steatosis or early cirrhosis. 2. Minimal gallbladder sludge with gallbladder wall thickening and subtle pericholecystic fluid. These findings may be seen in the setting of chronic liver disease although differential considerations include developing early acute cholecystitis. Consider HIDA scan if there is continued clinical uncertainty to evaluate for cystic duct patency. Hans Fofana MD Abdomen/Pelvis CT 9/30/17 0000 Signed Impressions: Service Date/Time: Sunday, July 02, 2017 14:59 - CONCLUSION: 1. Minimal prominence of the central intrahepatic bile ducts with diffuse gallbladder wall thickening and trace pericholecystic fluid. Combined ultrasound and CT findings are now more concerning for acute cholecystitis then suspected originally. Again, recommend HIDA scan to evaluate for cystic duct patency if there is continued clinical uncertainty. 2. Numerous subcentimeter hypodense lesions in both lobes of the liver that were not well demonstrated on ultrasound. Statistically these reflect cysts although if cholecystitis is confirmed and there is sufficient purulence, consideration should be given to possible ascending cholangitis and developing absceses although it is unlikely. 3. Normal appendix. Hans Fofana MD PE at Discharge AAOx3 Clear lungs BL Abdomen soft, surgical wounds with steri strips - C/D/I, bowel sounds present no edema in lower xtremities S1S2 + RRR, no MRG Pt update on day of discharge Patient c/o mild abdominal pain, denies fevers or chills. Denies nausea or vomiting. Patient did not have any further low grade temps, will not Dc on antibiotics. Pt Condition on Discharge: Stable Discharge Disposition: Discharge Home Discharge Time: > 30 minutes Discharge Instructions Follow up Referrals: Surgical - 10 Days with Marty Martínez MD Continued Medications: Hydrochlorothiazide (Hydrochlorothiazide) 25 Mg Tab 25 MG PO DAILY for Blood Pressure Management, #30 TAB 0 Refills Lisinopril (Lisinopril) 10 Mg Tab 10 MG PO DAILY, #30 TAB 0 Refills Terrell Greenfield MD Jul 05, 2017 16:39
== END 2017-07-05 17:19 | disposition home or self-care (01) ==
LOC: NEPE 10:23 → INTOOBSV 13:31 → NEDA 13:31 → N07A 18:53
PROVIDERS: ADMIT Hospitalist; ATTEND Hospitalist
DX: K81.0 Acute cholecystitis (principal); K81.1 Chronic cholecystitis; R50.9 Fever, unspecified; R00.1 Bradycardia, unspecified; R94.31 Abnormal electrocardiogram [ECG] [EKG]; I11.9 Hypertensive heart disease without heart failure; I51.7 Cardiomegaly; K76.0 Fatty (change of) liver, not elsewhere classified; K70.30 Alcoholic cirrhosis of liver without ascites; F17.290 Nicotine dependence, other tobacco product, uncomplicated; Z79.82 Long term (current) use of aspirin; Z91.14 Patient's other noncompliance with medication regimen
CPT/HCPCS: 74177; 76705; 78226; 80048; 80053; 80074; 81001; 82550; 82552; 83690; 84484; 85025; 85027; 85610; 85730; 88304; 88307; 88313; 93005; 96361; 96372; 96374; 96375; 96376; A9537; G0378; J0131; J0690; J1100; J1644; J1885; J2250; J2370; J2405; J2710; J3010; J7030; Q9967